=== PATIENT | male | born 1945 | race Caucasian/White ===

== ENCOUNTER → 2017-06-15 | Day surgery (SDC) | payer MEDICARE, BC ==
--- NOTE | 2017-06-14 21:55 | Anethesia Preoperative Eval ---
Anesthesia Pre-op PMH/ROS General Date of Evaluation: Jun 14, 2017 Time of Evaluation: 21:54 Anesthesiologist: lynn Mallampati Score Class I : Soft palate, uvula, fauces, pillars visible Class II: Soft palate, uvula, fauces visible Class III: Soft palate, base of uvula visible Class IV: Only hard plate visible Surgeon: kiki Diagnosis: gerd Surgical Procedure: egd/colonoscopy Anesthesia History: none Family History: no anesthesia problems Allergies: Coded Allergies: No Known Allergies (Unverified , 06/07/17) Medications: see eMAR Past Medical History Cardiovascular: Reports: CAD, other - cabg Gastrointestinal/Genitourinary: Reports: GERD Neurologic/Psychiatric: Reports: depression/anxiety Musculoskeletal/Integumentary: Reports: OA Anesthesia Pre-op Phys. Exam Physician Exam Last Vital Signs Date Time Temp Pulse Resp B/P Pulse Ox O2 Delivery O2 Flow Rate FiO2 06/15/17 10:13 97.1 66 18 142/65 98 Room Air Constitutional: NAD Neurologic: CN 2-12 intact Cardiovascular: RRR Respiratory: CTA Gastrointestinal: S/NT/ND Airway Exam Mallampati Score: Class II MO: full Neck: supple TMD: 2fb ROM: full Teeth: missing Dentures: lower, upper Anesthesia Pre-op A/P Risk Assessment & Plan Assessment: asa3 Plan: mac Status Change Before Surgery: No Pre-Antibiotics Drug: JENNIFER Bey Jun 14, 2017 21:55
[~2017-06-15] VITALS: Ht 165.1 cm; Wt 88.5 kg
[2017-06-15] VITALS (8 sets, daily range): BP systolic 139–163; BP diastolic 62–70
[~2017-06-15] MED LIST: Atropine Inj 1mg/10ml Syr IV PRN; CRESTOR10 M2 ORAL; DiphenhydrAMINE 50mg/ml Inj IVP PRN; Hydromorphone 0.5mg/0.5ml inj IVP PRN; LR 1000ml 1,000 ML IVLG SCH; LR 1000ml ONE; Lidocaine 1% MPF 10mg/ml 5ml ONE; Midazolam 2mg/2ml Inj IVP PRN; Propofol 10mg/ml 20ml IV ONE; [UNRECOGNIZED DRUG - REMARK] PO
--- NOTE | 2017-06-15 10:26 | Short Stay Surgery H&P ---
History of Present Illness History of Present Illness Chief Complaint Diarrhea, GERDs, abdominal pains HPI Regino Rondon is a 71 year old male who was admitted on for GERD/abdominal minerva and diarrhea. Patient History Allergies: Coded Allergies: No Known Allergies (Unverified , 06/07/17) PAST MEDICAL HISTORY: (1) Psoriasiform dermatitis (2) Hyperlipidemia (3) Diverticulosis Past Surgeries: Social History: Review of Systems Cardiovascular: Reports: no symptoms Skeletal: Reports: no symptoms Gastrointestinal: Reports: gastro esophageal reflux disease Genitourinary: Reports: BPH, UTI, dialysis, endstage renal disease, no symptoms , other, renal insufficiency, see HPI, urinary retention Endocrine: Reports: diabetes - type 1, diabetes - type 2, no symptoms, other, post menopausal, see HPI, thyroid Hematologic: Reports: anemia, coagulopathy, no symptoms, other, prior transfusion, see HPI Physical Exam Vital Signs Last Vital Signs Date Time Temp Pulse Resp B/P Pulse Ox O2 Delivery O2 Flow Rate FiO2 06/15/17 10:13 97.1 66 18 142/65 98 Room Air Skin: normal HENT: normal Heart: normal Lungs: normal Abdomen: abnormal Extremities: normal Genitourinary: normal Plan Plan of Care Upper nand the lower GI endoscopies. Preop Interventions None. Summary of Findings See the reports. Final Diagnosis: Attestation Are the patient's medical conditions optimized for surgery? Attestation Response: yes MANPREET ADAM Jun 15, 2017 10:26
--- NOTE | 2017-06-15 10:27 | Pre-Procedure Note/Attestation ---
Pre-Procedure Note/Attestation Complete Prior to Procedure Planned Procedure: left Procedure Narrative: Endoscopic examinatins of the upper and the lower GI tract. Indications for Procedure Pre-Operative Diagnosis: R/O peptic ulcer/polyps/tumors. Attestation I attest that I discussed the nature of the procedure; its benefits; risks and complications; and alternatives (and the risks and benefits of such alternatives ), prior to the procedure, with the patient (or the patient's legal underwriting service representative). I attest that, if there was a reasonable possibility of needing a blood transfusion, the patient (or the patient's legal underwriting service representative) was given the [facility] standardized written summary, pursuant to the Pasquale Kaylie Blood Safety Act ([place] Health and Safety Code # 1645, as amended). I attest that I re-evaluated the patient just prior to the surgery and that there has been no change in the patient's H&P, except as documented below: MANPREET ADAM Jun 15, 2017 10:27
--- NOTE | 2017-06-15 11:20 | Endoscopy Procedure Note ---
Endoscopy Procedure Note Indication for Procedure: Diarrhea. GERDS. Procedures Performed: EGD - Completely normal Upper GI endoscopy, biopsy done from random from gastric body., colonoscopy - Highly redundant left colon with poor colonic preparation. Mild diverticulosis of the colon found. Multiple biospes from different parts of colon obtained. terminal ileum could not be entered. Specimen: yes Pt Tolerated Procedure Well: Yes Estimated Blood Loss: none Anesthesiologist: Dr. Zachary Shearer Anesthesia: moderate sedation Medication Given: see anesthesia record Implant(s) used?: No 50 yrs or older w/o bx or poly: Yes 10 yrs. F/U needed: Yes 18 years or older w/prev. colo: Yes <3yrs. since last colonoscopy: No Med reason:<3 yrs.: System Reason:<3 yrs.: Missing Prev. Report MANPREET ADAM Jun 15, 2017 11:20
--- NOTE | 2017-06-15 11:21 | Discharge Instructions ---
Discharge Instructions Discharge Instructions Follow up with: Visit the doctor after 2 weeks in the office. For Congestive Heart Failure Reminder Report to your physician any weight gain of 5 pounds or more in one week. KIA,MANPREET Jun 15, 2017 11:21
--- NOTE | 2017-06-15 11:23 | Immediate Post-Op Evaluation ---
Immediate Post-Op Evalulation Immediate Post-Op Evalulation Procedure: egd/colonoscopy Date of Evaluation: Jun 15, 2017 Time of Evaluation: 11:37 IV Fluids: 450ml lr Blood Products: none Estimated Blood Loss: negligible Blood Pressure Systolic: 142 Blood Pressure Diastolic: 62 Pulse Rate: 66 Respiratory Rate: 18 O2 Sat by Pulse Oximetry: 100 Temperature (Fahrenheit): 97.8 Pain Score (1-10): 0 Nausea: No Vomiting: No Complications none Patient Status: awake, reacts, patent Hydration Status: adequate Drug: JENNIFER Bey Jun 15, 2017 11:23
--- NOTE | 2017-06-15 11:34 | 48 Hour Post Anesthesia Eval ---
Post Anesthesia Evaluation Procedure: egd/colonoscopy Date of Evaluation: Jun 15, 2017 Time of Evaluation: 11:45 Blood Pressure Systolic: 144 0: 65 Pulse Rate: 66 Respiratory Rate: 18 Temperature (Fahrenheit): 97.8 O2 Sat by Pulse Oximetry: 99 Airway: patent Nausea: No Vomiting: No Pain Intensity: 0 Hydration Status: adequate Cardiopulmonary Status: stable Mental Status/LOC: patient returned to baseline Post-Anesthesia Complications: none Follow-up care needed: N/A JENNIFER SANTO Jun 15, 2017 11:33
--- NOTE | 2017-06-16 00:17 | Operative Note - Dictated ---
DATE OF OPERATION: 06/15/2017 PROCEDURE: Esophagogastroduodenoscopy with biopsy. PREOPERATIVE DIAGNOSES: Abdominal pain, history of gastroesophageal reflux disease. POSTOPERATIVE DIAGNOSES: Completely normal upper gastrointestinal endoscopy. Biopsy was taken random from gastric body. MEDICATION USED: Per Dr. Reynaldo Shearer. INSTRUMENT: GIF Olympus upper gastrointestinal video endoscope. DESCRIPTION OF PROCEDURE: The patient after arriving endoscopy unit was told about risks and benefits of the procedure, which he accepted and signed the informed consent. He was then put in the left lateral decubitus position. After adequate IV injection, the scope was gently passed through the cricopharyngeal area, was lodged into the upper esophagus, and gradually advanced towards gastroesophageal junction. The entire length of the esophagus remained to be completely normal and there was no any evidence of any pathology such as ulcers, tumors, polyps, stricture, etc were found. The GE junction also looked normal without any evidence of Dooley's or hiatal hernia. At this time, the scope was advanced into the gastric cavity and after insufflation of air the areas of the upper and mid and lower part of the stomach were examined, which revealed no pathology. There was no ulcers, tumors, bleeding site, etc. No gastritis. One random biopsy from gastric body obtained. Subsequently, the scope was passed, normal looking pylorus. First and second portion of duodenum were also found to be completely normal. At this time, the scope was pulled out. The procedure was terminated. The patient tolerated the procedure well. Said Cinda Aldana DR: LAZ JOB#: [id number] CC:
--- NOTE | 2017-06-16 00:32 | Procedure Note ---
DATE OF PROCEDURE: 06/15/2017 SURGEON: Luciano Aldana M.D. PROCEDURE: Total colonoscopy with multiple biopsies. PREOPERATIVE DIAGNOSES: Abdominal pain and chronic diarrhea. POSTOPERATIVE DIAGNOSES: 1. Poor colonic preparation and highly redundant left colon. 2. Mild diverticulosis of the left colon. Otherwise, complete normal study up to the base of the cecum as examined. Terminal ileum could not be penetrated. Multiple biopsies from different parts of the colon was obtained. MEDICATIONS USED: Per Dr. Rodriguez. INSTRUMENT: GIF Olympus video colonoscope. DESCRIPTION OF PROCEDURE: The patient after arriving in the endoscopy unit was told about risks and benefits of the procedure, which he accepted and signed the informed consent. At this time, he was put in the left lateral decubitus position. After adequate IV sedation, the scope was gently passed through the anal area and careful examination of this section revealed no particular abnormality. There was no any evidence of hemorrhoids, etc. The rectum itself also looked quite normal. At this time, the scope was gradually passed towards a very redundant left colon, which significant amount of time was spent to pass through it with different manipulations of the scope. Finally, the scope could get to the mid body, a part of the descending colon, which revealed occasional diverticular opening. There lesions are not important and there is no any evidence of bleeding. At this point, the scope was gradually advanced toward the splenic flexure, from there into transverse colon, and finally towards the hepatic flexure and right colon all the way to the base of the cecum. All these areas remained to be completely normal without any particular pathology found. I mentioned there was liquidy stool all along the colon making the examination difficult and as such, the hyperplastic diminutive polypoid lesion could not be ruled out, however, as I mentioned, there was no any gross pathology found. There was no any evidence of colitis. However, at this point, multiple biopsies from different parts of the colon was obtained and subsequently the procedure was terminated. The patient tolerated the procedure well and left the endoscopy room in a good condition. Luciano Aldana M.D. DR: ALIREZA JOB#: [id number] CC:
== END | disposition home or self-care (01) ==
LOC: EDBD 08:23 → GAS 08:23
DX: K29.50 Unspecified chronic gastritis without bleeding (principal); R19.7 Diarrhea, unspecified; Q43.8 Other specified congenital malformations of intestine; K57.30 Diverticulosis of large intestine without perforation or abscess without bleeding; I25.10 Atherosclerotic heart disease of native coronary artery without angina pectoris; Z95.1 Presence of aortocoronary bypass graft; E78.5 Hyperlipidemia, unspecified; E11.22 Type 2 diabetes mellitus with diabetic chronic kidney disease; N18.6 End stage renal disease; Z99.2 Dependence on renal dialysis; N40.0 Benign prostatic hyperplasia without lower urinary tract symptoms; L30.8 Other specified dermatitis; D64.9 Anemia, unspecified; F32.9 Major depressive disorder, single episode, unspecified; F41.9 Anxiety disorder, unspecified; M19.90 Unspecified osteoarthritis, unspecified site; D68.9 Coagulation defect, unspecified
CPT/HCPCS: 43239; 45380; J2704; J7120; 94003; 94150